=== PATIENT | male | born 1950 | race Caucasian/White ===

== ENCOUNTER 2017-07-23 11:22 | Emergency (ER) | payer MEDICARE ==
[~2017-07-23] VITALS: Ht 170.2 cm; Wt 63.5 kg
[2017-07-23 11:25] VITALS: BP_SYST 136
[2017-07-23] MEDS ORDERED: KETOROLAC TROMETHAMINE 30 MG VIAL IVP ONE (11:45)
[2017-07-23] MEDS ORDERED: CYCLOBENZAPRINE HCL 10 MG TABLET (FLEXERIL) PO ONE (11:45)
[2017-07-23 13:26] LABS: BILIRUBIN,URINE NEGATIVE (NEGATIVE); BLOOD, URINE NEGATIVE (NEGATIVE); CLARITY/URINE CLEAR (CLEAR); COLOR,URINE YELLOW (YELLOW); GLUCOSE,URINE NEGATIVE (NEGATIVE); KETONES,URINE NEGATIVE (NEGATIVE); LEUKOCYTE ESTERASE ,URINE NEGATIVE (NEGATIVE); NITRITE, URINE NEGATIVE (NEGATIVE); PROTEIN URINE NEGATIVE (NEGATIVE); UROBILINOGEN,URINE 0.2 (0.2-1.0)
== END 2017-07-23 13:49 | disposition home or self-care (01) ==
LOC: SED 11:22
DX: M54.5 Low back pain (principal); M79.1 Myalgia; E11.9 Type 2 diabetes mellitus without complications; F41.9 Anxiety disorder, unspecified
CPT/HCPCS: 76700; 81003; 96374; 99285; J1885

== ENCOUNTER 2017-12-11 14:11 | Emergency (ER) | payer MEDICARE ==
[~2017-12-11] VITALS: Ht 165.1 cm; Wt 56.7 kg
[2017-12-11 14:11] VITALS: BP_SYST 160
--- NOTE | 2017-12-11 14:16 | NUR ---
Pt placed to ER bed 06. Pt c/o dizziness since this AM. Pt states that he left work early and layed down to sleep. Dizziness began upon awakening. Pt denies hitting head or LOC. No focal neurodeficits noted.
--- NOTE | 2017-12-11 14:30 | NUR ---
Dr. Barker at bedside to assess pt.
[2017-12-11] MEDS ORDERED: MECLIZINE HCL 25 MG TABLET (ANITVERT) PO ONE (15:15)
--- NOTE | 2017-12-11 15:30 | NUR ---
Pt denies c/o pain or discomfort, no needs verbalized at this time.
[2017-12-11 16:20] VITALS: BP_SYST 155
--- NOTE | 2017-12-11 16:20 | NUR ---
Patient given written and verbal discharge instructions and verbalizes understanding. ER MD discussed with patient the results and treatment provided. Patient in stable condition. ID arm band removed. Rx of Meclizine and Zofran given. Patient educated on pain management and to follow up with PMD. Pain Scale 0/10. Opportunity for questions provided and answered.
== END 2017-12-11 16:20 | disposition home or self-care (01) ==
LOC: SED 14:11
DX: H81.10 Benign paroxysmal vertigo, unspecified ear (principal); E11.9 Type 2 diabetes mellitus without complications; F41.9 Anxiety disorder, unspecified
CPT/HCPCS: 99283; J8597

== ENCOUNTER 2018-09-23 12:04 | Emergency (ER) | payer MEDICARE ==
[~2018-09-23] VITALS: Ht 165.1 cm; Wt 55.3 kg
[2018-09-23 12:05] VITALS: BP_SYST 138
--- NOTE | 2018-09-23 12:05 | NUR ---
Patient triaged and placed in waiting room. VSS and patient appears in no acute distress at this time. Accompanied by , awaiting available bed, and MD notified of need for MSE.
--- NOTE | 2018-09-23 13:05 | NUR ---
PT STATES HE DOES NOT WANT TO WAIT FOR HOSPITAL BED. EXPLAINED TO PT THAT A BED WILL BE AWAILABLE SOON. PT DECIDED TO LEAVE WITHOUT BEING SEEN.
[2018-09-24] MEDS ORDERED: ALBUTEROL SULFATE 0.083% 2.5 MG/3 ML VIAL.NEB INH ONE (14:04)
== END 2018-09-23 13:05 | disposition left against medical advice (07) ==
LOC: SED 12:04
DX: R42 Dizziness and giddiness (principal); Z53.21 Procedure and treatment not carried out due to patient leaving prior to being seen by health care provider
CPT/HCPCS: J7613

== ENCOUNTER 2021-01-27 10:38 | Emergency (ER) | payer MEDICARE ==
[~2021-01-27] VITALS: Ht 165.1 cm; Wt 59.0 kg
[2021-01-27 10:38] VITALS: BP_SYST 130; BP_SYST 140
[2021-01-27] MEDS ORDERED: TRAM50TA2 PO (11:58)
[2021-01-27] MEDS ORDERED: IBUP-1971 PO (11:58)
[2021-01-27 12:09] VITALS: BP_SYST 140
== END 2021-01-27 12:09 | disposition home or self-care (01) ==
LOC: SED 10:38
DX: S46.912A Strain of unspecified muscle, fascia and tendon at shoulder and upper arm level, left arm, initial encounter (principal); E11.9 Type 2 diabetes mellitus without complications; F41.9 Anxiety disorder, unspecified; W18.09XA Striking against other object with subsequent fall, initial encounter; Y93.89 Activity, other specified; Y92.89 Other specified places as the place of occurrence of the external cause; Y99.8 Other external cause status
CPT/HCPCS: 73030; 99283

== ENCOUNTER 2022-10-11 06:57 | Emergency (ER) | payer MEDICARE ==
[~2022-10-11] VITALS: Ht 162.6 cm; Wt 55.3 kg
[~2022-10-11 06:57] MED LIST: IBUP-1971 PO; TRAM50TA2 PO
[2022-10-11 07:14] VITALS: BP_SYST 148
[2022-10-11 08:27] LABS: BASOPHILS % (AUTO) 0.6 % (0.0-2.0); EOSINOPHILS # (AUTO) 0.4 K/uL (0.0-0.4); EOSINOPHILS % (AUTO) 4.9 % (0.0-4.0); HEMATOCRIT 39.1 % (36-54); HEMOGLOBIN 13.5 g/dL (14.0-18.0); LYMPHOCYTES # (AUTO) 1.9 K/uL (1.0-5.5); LYMPHOCYTES % (AUTO) 25.3 % (20.5-51.5); MEAN CORPUSCULAR HEMOGLOBIN 31 pg (27-31); MEAN CORPUSCULAR HGB CONC 35 % (32-36); MEAN CORPUSCULAR VOLUME 89 fL (79.0-98.0); MONOCYTES # (AUTO) 0.4 K/uL (0.0-1.0); MONOCYTES % (AUTO) 5.4 % (1.7-9.3); NEUTROPHILS # (AUTO) 4.7 K/uL (1.8-7.7); NEUTROPHILS % (AUTO) 63.8 % (40.0-70.0); PLATELET COUNT (AUTO) 259 K/uL (130-430); RED CELL DISTRIBUTION WIDTH 13.3 % (9.0-15.0); WHITE BLOOD COUNT (AUTO) 7.4 K/uL (4.8-10.8)
[2022-10-11 08:32] LABS: ANION GAP 3 (5-15); CHLORIDE 102 mmol/L (98-107); CREATININE 0.99 mg/dL (0.55-1.30); GLUCOSE 198 mg/dL (70-99); UREA NITROGEN, BLOOD 19 mg/dL (8-21)
[2022-10-11 08:40] LABS: ALANINE AMINOTRANSFERASE 25 U/L (12-78); ASPARTATE AMINOTRANSFERASE 19 U/L (10-37); TOTAL BILIRUBIN 0.4 mg/dL (0.0-1.0)
[2022-10-11 09:06] LABS: BILIRUBIN,URINE NEGATIVE (NEGATIVE); BLOOD, URINE NEGATIVE (NEGATIVE); CLARITY/URINE CLEAR (CLEAR); COLOR,URINE YELLOW (YELLOW); GLUCOSE,URINE NEGATIVE (NEGATIVE); KETONES,URINE NEGATIVE (NEGATIVE); LEUKOCYTE ESTERASE ,URINE NEGATIVE (NEGATIVE); NITRITE, URINE NEGATIVE (NEGATIVE); PROTEIN URINE NEGATIVE (NEGATIVE); UROBILINOGEN,URINE 0.2 (0.2-1.0)
[2022-10-11] MEDS ORDERED: OSELTAMIVIR PHOSPHATE 75 MG CAPSULE PO ONE (09:15)
[2022-10-11] MEDS ORDERED: ACET325T53 PO (11:56)
[2022-10-11] MEDS ORDERED: OSEL75CA PO (11:56)
[2022-10-11] MEDS ORDERED: IBUP-2018 PO (11:56)
== END 2022-10-11 12:03 | disposition home or self-care (01) ==
LOC: SED 06:57
DX: J10.1 Influenza due to other identified influenza virus with other respiratory manifestations (principal); R10.84 Generalized abdominal pain; R11.0 Nausea; Z79.899 Other long term (current) drug therapy; Z20.822 Contact with and (suspected) exposure to COVID-19
CPT/HCPCS: 80053; 85025; 87040; 84484; 36415; 93005; 71045; 76376; 74176; 99285; 83605; 81003; 87804 ×2; 87426; G9035

== ENCOUNTER 2023-01-23 08:46 | Emergency (ER) | payer MEDICARE ==
[~2023-01-23] VITALS: Ht 162.6 cm; Wt 54.4 kg
[2023-01-23 08:46] VITALS: BP_SYST 146
[~2023-01-23 08:46] MED LIST changes: +ACET325T53 PO; +IBUP-2018 PO; +OSEL75CA PO
--- NOTE | 2023-01-23 08:47 | NUR ---
BROUGHT BACK TO BED #7 AND TRIAGED. REPORT GIVEN TO IVON
--- NOTE | 2023-01-23 09:05 | NUR ---
assumed patient care pt aox4 gcs 15 c/o mechanical fall at [employer] with postive loc pt denies blood thinners. pt states he was walking and tripped on the asphault fell and does not recall event. he woke up not knowning where he was at and a bit confused. patient is now at baseline. occipital lac noted with dry blood he c/o right shoulder pain 5/10
[2023-01-23] MEDS ORDERED: ACETAMINOPHEN 325 MG TABLET PO ONE (09:30)
[2023-01-23] MEDS ORDERED: ACET-2634 PO (10:11)
--- NOTE | 2023-01-23 10:50 | NUR ---
patient will be d/c will follow up with primary md outpatient pt instructed to return to ER if sysmptoms change. not respiratory distress noted pt ambulated out of ER
--- NOTE | 2023-01-23 10:54 | NUR ---
Patient given written and verbal discharge instructions and verbalizes understanding. ER MD discussed with patient the results and treatment provided. Patient in stable condition. ID arm band removed. IV catheter removed intact and dressing applied, no active bleeding. Rx was not given. Patient educated on pain management and to follow up with PMD. Pain Scale . Opportunity for questions provided and answered. Medication side effect fact sheet provided.
[2023-01-23 10:56] VITALS: BP_SYST 130
== END 2023-01-23 10:54 | disposition home or self-care (01) ==
LOC: SED 08:46
DX: S00.01XA Abrasion of scalp, initial encounter (principal); S40.911A Unspecified superficial injury of right shoulder, initial encounter; E11.9 Type 2 diabetes mellitus without complications; Z79.899 Other long term (current) drug therapy; W18.30XA Fall on same level, unspecified, initial encounter; Y93.89 Activity, other specified; Y92.89 Other specified places as the place of occurrence of the external cause; Y99.8 Other external cause status
CPT/HCPCS: 70450-TC; 73030; 76376; 82962; 99284

== ENCOUNTER 2023-06-20 05:28 | Emergency (ER) | payer MEDICARE ==
[~2023-06-20] VITALS: Ht 162.6 cm; Wt 55.3 kg
[~2023-06-20 05:28] MED LIST changes: +ACET-2634 PO
[2023-06-20 05:58] VITALS: BP_SYST 143; PULSE 54; RESP 18; TEMP 98.3; O2SAT 99
[2023-06-20 06:40] LABS: BASOPHILS # (AUTO) 0.1 K/uL (0.0-0.2); EOSINOPHILS # (AUTO) 0.4 K/uL (0.0-0.4); EOSINOPHILS % (AUTO) 5.8 % (0.0-4.0); HEMATOCRIT 39.8 % (36-54); LYMPHOCYTES # (AUTO) 1.9 K/uL (1.0-5.5); LYMPHOCYTES % (AUTO) 28.6 % (20.5-51.5); MEAN CORPUSCULAR HEMOGLOBIN 30 pg (27-31); MEAN CORPUSCULAR HGB CONC 33 % (32-36); MEAN CORPUSCULAR VOLUME 92 fL (79.0-98.0); MONOCYTES # (AUTO) 0.4 K/uL (0.0-1.0); MONOCYTES % (AUTO) 6.3 % (1.7-9.3); NEUTROPHILS # (AUTO) 3.9 K/uL (1.8-7.7); NEUTROPHILS % (AUTO) 58.3 % (40.0-70.0); PLATELET COUNT (AUTO) 244 K/uL (130-430); RED BLOOD CELL COUNT(AUTO) 4.31 MIL/uL (4.2-6.2); RED CELL DISTRIBUTION WIDTH 13.4 % (9.0-15.0); WHITE BLOOD COUNT (AUTO) 6.6 K/uL (4.8-10.8)
[2023-06-20] MEDS ORDERED: MAG-AL HYDROX/SIMETH 30 ML UDC PO ONE (06:45)
[2023-06-20] MEDS ORDERED: FAMOTIDINE 20 MG TABLET PO ONE (06:45)
[2023-06-20 07:00] LABS: ALANINE AMINOTRANSFERASE 21 U/L (12-78); ALBUMIN 3.9 g/dL (3.4-4.8); ANION GAP 8 (5-15); ASPARTATE AMINOTRANSFERASE 15 U/L (10-37); CALCIUM 8.5 mg/dL (8.4-11.0); CARBON DIOXIDE 27 mmol/L (23-29); CHLORIDE 101 mmol/L (98-107); CREATININE 0.85 mg/dL (0.55-1.30); GLUCOSE 253 mg/dL (74-106); POTASSIUM 4.2 mmol/L (3.5-5.1); SODIUM SERUM 136 mmol/L (136-145); TOTAL BILIRUBIN 0.4 mg/dL (0.0-1.0); TOTAL PROTEIN, SERUM 6.9 g/dL (6.4-8.3); UREA NITROGEN, BLOOD 21 mg/dL (8-21)
[2023-06-20 07:03] LABS: LIPASE 108 U/L (73-393)
[2023-06-20] MEDS ORDERED: OMEP40CA20 PO (09:09)
[2023-06-20 09:23] VITALS: BP_SYST 119; PULSE 58; RESP 15; TEMP 97.1; O2SAT 100
== END 2023-06-20 09:26 | disposition home or self-care (01) ==
LOC: SED 05:28
DX: R10.13 Epigastric pain (principal); E11.9 Type 2 diabetes mellitus without complications; Z79.899 Other long term (current) drug therapy
CPT/HCPCS: 36415; 71045; 76705; 80053; 83690; 83880; 84484; 85025; 93005; 99285